=== PATIENT | female | born 1955 | race Hispanic/Latino ===

== ENCOUNTER 2017-01-08 15:02 | Emergency (ER) | payer MEDICAID, MEDICARE ==
[2017-01-08 15:02] VITALS: BMI 28.8
[2017-01-08 15:13] VITALS: BP 127/74; PULSE 100; RESP 20; TEMP 98.2; O2SAT 98
== END 2017-01-08 15:18 | disposition left against medical advice (07) ==
LOC: H.ER 15:02
DX: Z02.89 Encounter for other administrative examinations (principal)

== ENCOUNTER 2017-01-08 17:26 | Emergency (ER) | payer MEDICARE ==
[2017-01-08 17:26] VITALS: BMI 28.8
[2017-01-08 17:43] VITALS: BP 116/76; PULSE 99; RESP 20; TEMP 98; O2SAT 96
[2017-01-08] MEDS ORDERED: Oxycodone/Acetaminophen 5/325 mg Tab ONE (17:52)
[2017-01-08] MEDS ORDERED: Oxycodone/Acetaminophen 5/325 mg Tab PO STA (17:56)
--- NOTE | 2017-01-08 18:40 | ED PDOC ---
HPI: Back Time Seen by Provider: 01/08/17 17:35 Chief Complaint (Nursing): Back Pain Chief Complaint (Provider): Back pain History Per: Patient History/Exam Limitations: no limitations Onset/Duration Of Symptoms: Days (1x) Current Symptoms Are (Timing): Still Present Severity: Moderate Previous Symptoms: Back Pain, Chronic Pain Additional Complaint(s): 61 year old female with a pertinent medical history of chronic back pain, sciatica, arthritis, herniated discs, and severe osteoporosis presents to the ED with complaints of back pain that started today. She has been in the hospital all day because her daughter is having a baby and she is unable to access her back pain medication. She denies having any other complaints. PMD: Shin Baltazar MD Past Medical History Reviewed: Historical Data, Nursing Documentation, Vital Signs Vital Signs: Last Vital Signs Temp 98 F 01/08/17 17:31 Pulse 99 H 01/08/17 17:31 Resp 20 01/08/17 17:31 BP 116/76 01/08/17 17:31 Pulse Ox 96 01/08/17 17:31 - Medical History PMH: Anxiety, Arthritis, Back Problems, CAD, COPD, Depression, HTN, Hypercholesterolemia, Hypothyroidism, Osteoporosis, TIA - Surgical History Surgical History: Carotid Endarterectomy - Family History Family History: States: Unknown Family Hx - Social History Current smoker - smoking cessation education provided: Yes Alcohol: None Drugs: Denies - Immunization History Hx Tetanus Toxoid Vaccination: No Hx Influenza Vaccination: Yes Hx Pneumococcal Vaccination: No - Home Medications Home Medications: Ambulatory Orders Medication Instructions Recorded Acetaminophen/Oxycodone Hydr 1 tab PO Q6H PRN 04/11/15 [Percocet 10/325 mg Tab] Alprazolam [Xanax] 0.5 mg PO BID 04/11/15 Aspirin [Aspirin Chewable] 81 mg PO DAILY 04/11/15 Atorvastatin [Lipitor] 40 mg PO HS 04/11/15 Celecoxib [celeBREX] 100 mg PO BID 04/11/15 Cilostazol [Pletal] 100 mg PO BID 04/11/15 Clopidogrel [Plavix] 75 mg PO DAILY 04/11/15 Cyclobenzaprine HCl [Flexeril] 10 mg PO TID 04/11/15 DULoxetine [Cymbalta] 60 mg PO DAILY 04/11/15 Gabapentin [Neurontin] 800 mg PO BID 04/11/15 Ipratropium/Albuterol Sulfate 1 ray IH QID PRN 04/11/15 [Combivent Inhaler] Levothyroxine Sodium 25 mcg PO DAILY 04/11/15 Lisinopril 40 mg PO DAILY 04/11/15 Naproxen [Naproxen Delayed-Release] 500 mg PO BID 04/11/15 Salmeterol Xinafoate/Fluticaso 2 puff INH BID 04/11/15 [Advair Hfa 45-21] Sertraline [Zoloft] 100 mg PO DAILY 04/11/15 Zolpidem [Ambien] 12.5 mg PO HS 04/11/15 hydrALAZINE [Apresoline] 50 mg PO TID 04/11/15 Tramadol Hydrochloride [Tramadol] 50 mg PO Q8 #10 tab 06/09/15 Cholecalciferol (Vitamin D3) 1,000 unit PO DAILY 01/03/16 [Vitamin D3] Diclofenac Sodium [Voltaren] 50 mg PO TID 01/03/16 [address]ivalproex [Depakote DR (*BID*)] 250 mg PO BID 01/03/16 Escitalopram [Lexapro] 10 mg PO DAILY 01/03/16 Famotidine [Pepcid] 20 mg PO BID 01/03/16 Fluticasone Nasal [Flonase] 1 spr NS TID PRN 01/03/16 Folic Acid 1 mg PO DAILY 01/03/16 Loratadine [Claritin] 10 mg PO DAILY 01/03/16 Montelukast [Singulair] 10 mg PO DAILY 01/03/16 busPIRone [Buspar] 10 mg PO DAILY 01/03/16 Sulfamethoxazole/Trimethoprim 1 tab PO Q12 #14 tab 01/05/16 [Bactrim DS 800 mg-160 mg] - Allergies Allergies/Adverse Reactions: Allergies Allergy/AdvReac Type Severity Reaction Status Date / Time budesonide [From Symbicort] Allergy SHORTNESS Verified 01/02/16 21:15 OF BREATH formoterol fumarate Allergy SHORTNESS Verified 01/02/16 21:15 [From Symbicort] OF BREATH Review of Systems Musculoskeletal: Positive for: Back Pain Physical Exam - Reviewed Nursing Documentation Reviewed: Yes Vital Signs Reviewed: Yes - Physical Exam Appears: Positive for: Well, Non-toxic, No Acute Distress Head Exam: Positive for: ATRAUMATIC, NORMOCEPHALIC Skin: Positive for: Normal Color, Warm, Dry Neck: Positive for: Normal, Painless ROM, Supple Cardiovascular/Chest: Positive for: Regular Rate, Rhythm Respiratory: Positive for: Normal Breath Sounds. Negative for: Respiratory Distress Back: Positive for: Vertebral Tenderness (right paralumbar tenderness) Extremity: Positive for: Normal ROM Neurologic/Psych: Positive for: Alert, Oriented (3x) - ECG O2 Sat by Pulse Oximetry: 96 (RA) Pulse Ox Interpretation: Normal Medical Decision Making Medical Decision Makin:35 Initial impression: 61 year old female with back pain. Initial plan: * percocet 5/325mg tab 1 tab PO * reevaluation Scribe Attestation: Documented by Nuris Molina, acting as a scribe for Blanca Pritchett PA-C. Provider Scribe Attestation: All medical record entries made by the Scribe were at my direction and personally dictated by me. I have reviewed the chart and agree that the record accurately reflects my personal performance of the history, physical exam, medical decision making, and the department course for this patient. I have also personally directed, reviewed, and agree with the discharge instructions and disposition. Disposition - Clinical Impression Clinical Impression: Chronic back pain - Patient ED Disposition Is Patient to be Admitted: No - Disposition Disposition: Routine/Home Disposition Time: 18:13 Condition: FAIR Instructions: Chronic Back Pain (ED)
== END 2017-01-08 18:13 | disposition home or self-care (01) ==
LOC: H.ER 17:26
DX: M54.9 Dorsalgia, unspecified (principal); E78.00 Pure hypercholesterolemia, unspecified; F41.9 Anxiety disorder, unspecified; G89.29 Other chronic pain; I10 Essential (primary) hypertension; I25.10 Atherosclerotic heart disease of native coronary artery without angina pectoris; Z79.82 Long term (current) use of aspirin; Z86.73 Personal history of transient ischemic attack (TIA), and cerebral infarction without residual deficits

== ENCOUNTER 2018-10-28 19:33 | Emergency (ER) | payer MEDICAID, MEDICARE ==
[2018-10-28 19:34] VITALS: BMI 27.4
[2018-10-28 19:43] VITALS: RESP 18; O2SAT 98
[2018-10-28] MEDS ORDERED: Lidocaine 1.5%-Epinephrine 1:200,000 5 ML AMP IJ STA (20:32)
[2018-10-28] MEDS ORDERED: Hydrogen Peroxide 237 ML SOL TP ONE (20:40)
[2018-10-28 20:46] LABS: BASO # 0.1 K/uL (0.0-0.2); BASO % 1.1 % (0.0-2.0); EOS # 0.2 K/uL (0.0-0.7); EOS % 2.1 % (0.0-4.0); HEMOGLOBIN 11.1 g/dL (12.0-16.0); LYMPH # 2.7 K/uL (1.0-4.3); LYMPH % 35.7 % (20.0-40.0); MEAN CELL VOLUME 81.4 fl (81.0-99.0); MEAN CORPUSCULAR HEMOGLOBIN 25.8 pg (27.0-31.0); MEAN CORPUSCULAR HGB CONC 31.7 g/dL (33.0-37.0); MEAN PLATELET VOLUME 9.1 fl (7.2-11.7); MONO # 0.9 K/uL (0.0-0.8); MONO % 11.7 % (0.0-10.0); NEUT # 3.7 K/uL (1.8-7.0); NEUT % 49.4 % (50.0-75.0); NRBC % 0.1 % (0.0-0.0); RBC 4.32 Mil/uL (3.80-5.20); RED CELL DISTRIBUTION WIDTH 23.2 % (11.5-14.5); WHITE BLOOD COUNT 7.5 K/uL (4.8-10.8)
[2018-10-28] MEDS ORDERED: Lidocaine 1% w Epi 1:100,000 Inj ONE (20:46)
[2018-10-28] MEDS ORDERED: Hydrogen Peroxide 3% Soln (480ml) TP ONE (20:47)
[2018-10-28] MEDS ORDERED: Tdap Vaccine 0.5 ml Vial (10-64 yrs) IM ONE ×2 (20:51→21:06)
--- NOTE | 2018-10-28 20:53 | ED PDOC ---
HPI: Trauma/Fall - HPI Time Seen by Provider: 10/28/18 20:08 Chief Complaint (Nursing): Trauma Chief Complaint (Provider): Trauma History Per: Patient History/Exam Limitations: no limitations Onset/Duration Of Symptoms: Mins Injury Occurred (Timing): Just Before Arrival Additional Complaint(s): 62 y/o female brought in by EMS for evaluation of a headache s/p fall just prior to arrival. Patient states she was walking outside when she accidentally tripped over an uneven sidewalk and fell back hitting her head against the railing. Patient denies any loss of consciousness but reports her son told her not to get up off the ground and to wait until EMS came. Patient additionally denies dizziness, lightheadedness, chest pain, neck pain and extremity pain and difficulty walking. Patient currently complaining of a headache. Patient notes of being on blood thinners (Plavix and Pletal) and Aspirin for stents. PMD: Shin Baltazar It Account Manager: Dr. Roberts Tetanus vaccination is not up to date. Past Medical History Reviewed: Historical Data, Nursing Documentation, Vital Signs Vital Signs: Last Vital Signs Temp 98.7 F 10/28/18 19:41 Pulse 66 10/28/18 19:41 Resp 18 10/28/18 19:41 BP 143/58 L 10/28/18 19:41 Pulse Ox 98 10/28/18 19:41 - Medical History PMH: Anxiety, Arthritis, Asthma, Back Problems, CAD, COPD, Depression, HTN, Hypercholesterolemia, Hypothyroidism, Osteoporosis, TIA - Surgical History Surgical History: Carotid Endarterectomy, Coronary Stent - Family History Family History: States: Unknown Family Hx - Immunization History Hx Tetanus Toxoid Vaccination: No Hx Influenza Vaccination: Yes Hx Pneumococcal Vaccination: No - Home Medications Home Medications: Ambulatory Orders Medication Instructions Recorded Cilostazol [Pletal] 100 mg PO ACBD 04/11/17 Clopidogrel [Plavix] 1 tab PO DAILY 04/11/17 DULoxetine [Cymbalta] 60 mg PO DAILY 04/11/17 Divalproex [Depakote ER(ONCE 750 mg PO TID 04/11/17 DAILY)] Famotidine [Pepcid] 20 mg PO BID 04/11/17 Lisinopril [Prinivil] 10 mg PO DAILY 04/11/17 Rosuvastatin Calcium [Crestor] 20 mg PO DAILY 04/11/17 Gabapentin [Neurontin] 400 mg PO TID 04/16/17 Levothyroxine [Synthroid] 25 mcg PO DAILY 04/16/17 Quetiapine Fumarate [Seroquel] 50 mg PO HS 04/16/17 hydrALAZINE [Apresoline] 50 mg PO TID 04/16/17 Acetaminophen/Oxycodone Hydr 1 tab PO Q6H 1 Days tab 04/24/17 [Percocet 10/325 mg Tab] Albuterol HFA [Ventolin HFA 90 1 puff IH QID PRN #1 inhaler 04/24/17 mcg/actuation (8 g)] Albuterol/Ipratropium [Combivent 1 puff IH Q12 #1 inhaler 04/24/17 Respimat] Albuterol/Ipratropium [Duoneb 3 3 ml INH RQ6 neb 04/24/17 mg/0.5 mg (3 ml) UD] Blood Pressure Test Kit-Medium 1 each MC DAILY #1 kit 04/24/17 [Blood Pressure Cuff Monitor] Fluticasone/Salmeterol 250/50 1 puff IH Q12 #1 puff 04/24/17 [Advair Diskus] Mirtazapine [Remeron] 15 mg PO HS #30 tab 04/24/17 Saccharomyces Boulardi [Florastor] 250 mg PO BID #14 cap 04/24/17 levoFLOXacin [Levaquin] 500 mg PO DAILY #7 tab 04/24/17 - Allergies Allergies/Adverse Reactions: Allergies Allergy/AdvReac Type Severity Reaction Status Date / Time budesonide [From Symbicort] Allergy SHORTNESS Verified 10/28/18 19:41 OF BREATH formoterol fumarate Allergy SHORTNESS Verified 10/28/18 19:41 [From Symbicort] OF BREATH Review of Systems ROS Statement: Except As Marked, All Systems Reviewed And Found Negative Cardiovascular: Negative for: Chest Pain Musculoskeletal: Negative for: Neck Pain Neurological: Positive for: Headache. Negative for: Dizziness, Other (loss of consciousness) Physical Exam - Reviewed Nursing Documentation Reviewed: Yes Vital Signs Reviewed: Yes - Physical Exam Comments: GENERAL APPEARANCE: Patient is awake, alert, oriented x 3, in mild obvious discomfort. SKIN: Warm, dry; (-) cyanosis. HEAD: (+) 2 cm laceration with active bleeding and surrounding hematoma noted to the left back of head over parietal area, no foreign body, active bleeding EYES: (-) conjunctival pallor, (-) scleral icterus, (-) nystagmus.(-) periorbital swelling ENMT: Mucous membranes moist. Ears: external canal clear, (-)hemotympanum Nose: (-) septal hematoma (-) tenderness. No oral trauma. Pharynx clear. Airway patent: (-) stridor. Full ROM of mandible without pain. (-) jaw tenderness (-) dental instability NECK: (-) paracervical tenderness, (-) vertebral tenderness, (-) lymphadenop athy. no step off (+)FROM CHEST AND RESPIRATORY: (-) chest wall tenderness. Lungs: (-) rales, (-) rhonchi, (-) wheezes; breath sounds equal bilaterally. HEART AND CARDIOVASCULAR: (-) irregularity; (-) murmur, (-) gallop. ABDOMEN AND GI: Soft; (-) tenderness. BACK: (-) tenderness. EXTREMITIES: (-) deformity, (-) tenderness, (-) edema, (-) ecchymosis, (-) limitation of motion, distal pulses 2+. NEURO AND PSYCH: GCS=15. Mental status as above. Has full memory of episode; truck farmer: Pupils equal & reactive . EOMI. (-) facial asymmetry. Tongue and uvula midline. normal finger to nose, steady gait, Strength 5/5 in all extremities. No gross sensory deficits. DTRs symmetric. - Laboratory Results Result Diagrams: 10/28/18 20:40 10/28/18 20:40 - ECG O2 Sat by Pulse Oximetry: 98 (RA) Pulse Ox Interpretation: Normal Medical Decision Making Medical Decision Making: Time: 2039 Plan: -- Laceration Repair -- CT Head w/o Contrast trauma and on anticoagulants with active bleeding -- CMP -- CBC with Differentials -- PTT -- Prothrombin Time -- Adacel (10-64 yrs) 0.5 ml IM -- Hydrogen Peroxide 237 ml TP -- Lidocaine 1.5% with Epi 10 ml IJ -- Tylenol 650 mg PO -- IV Insertion 21:40 EXAM: CT Head Without IV contrast. CLINICAL HISTORY: Fall laceration TECHNIQUE: Axial computed tomography images of the head/brain without intravenous contrast. COMPARISON: Comparison is made to previous examination dated 04/16/2015. FINDINGS: BRAIN: No acute intraparenchymal hemorrhage. No mass lesion. No CT evidence for acute territorial infarct. No midline shift or extra-axial collections. VENTRICLES: No hydrocephalus. VASCULAR: Atherosclerotic vascular plaquing is seen within the vertebral arteries and carotid siphons bilaterally. ORBITS: The orbits are unremarkable. SINUSES AND MASTOIDS: The paranasal sinuses and mastoid air cells are clear. BONES: No fracture. Radiolucent zones are seen in the inner skull table of the posterior occipit in the midline thought compatible with pacchionian granulation tissue. SOFT TISSUES: A left posterior superior parietal scalp hematoma is identified. IMPRESSION: 1. No acute intracranial abnormality. 2. Posterior superior left parietal scalp hematoma. 3. Atherosclerotic vascular plaquing as described above. 4. No significant interval change. Electronically signed on Oct 28, 2018 9:37:48 PM EDT by: Haider Esparza M.D., M.B.A., Certified By [employer] Trained MRI and CT Specialist Moderate wound irrigation, laceration repair done by me, bleeding controlled, +hematoma, advised ice and f/u with PMD tomorrow, pt's labs wnl, neurologically intact, pain improved, concussion precautions discussed Discussed results, diagnosis, treatment, return precautions and f/u with pt who is understanding, in agreement and stable for dc Scribe Attestation: Documented by Emory Mayberry, acting as a scribe forJohn Cartagena PA-C. Provider Scribe Attestation: All medical record entries made by the Scribe were at my direction and personally dictated by me. I have reviewed the chart and agree that the record accurately reflects my personal performance of the history, physical exam, medical decision making, and the department course for this patient. I have also personally directed, reviewed, and agree with the discharge instructions and disposition. Procedures - Time-Out Type of Procedure: laceration - Laceration/Wound Repair Head Wound Length (cm): 2 Wound's Depth, Shape: superficial Wound Explored: clean Irrigated w/ Saline (ccs): 1,000 Anesthesia: Lidocaine w/ Epi Volume Anesthetic (ccs): 5 Wound Repaired With: Sutures Suture Size/Type: 3:0 (ethilon) Number of Sutures: 3 Wound Complexity: Simple Disposition - Clinical Impression Clinical Impression: Head injury due to trauma, Laceration of head, Fall from slip, trip, or stumble - Patient ED Disposition Is Patient to be Admitted: No Counseled Patient/Family Regarding: Studies Performed, Diagnosis, Need For Followup - Disposition Referrals: Shin Baltazar MD [Family Provider] - Disposition: Routine/Home Disposition Time: 22:29 Condition: IMPROVED Additional Instructions: Return to ED in 7 days for suture removal. Keep wound clean, dry and covered. Apply ice for swelling. Follow up with your doctor in 1-2 days. Take Tylenol as needed for pain. The emergency medical care you received today was directed at your acute symptoms. If you were prescribed any medication, please fill it and take as directed. It may take several days for your symptoms to resolve. Return to the Emergency Department if your symptoms worsen, do not improve, or if you have any other problems. Please contact your doctor in 2 days for re-evaluation and follow up / or call one of the physicians/clinics you have been referred to that are listed on the Patient Visit Information form that is included in your discharge packet. Bring any paperwork you were given at discharge with you along with any medications you are taking to your follow up visit. Our treatment cannot replace ongoing medical care by a primary care provider (PCP) outside of the emergency departm ent. Instructions: Concussion in Adults, Wound Care, Laceration Repair With Stitches (DC) Forms: [employer] (Romansh) Print Language: THAI - POA Present On Arrival: None
[2018-10-28 20:58] LABS: ALB/GLOB RATIO 1.2 (1.0-2.1); ALBUMIN 3.7 g/dL (3.5-5.0); ALT/SGPT 26 U/L (9-52); AST/SGOT 23 U/L (14-36); BLOOD UREA NITROGEN 14 mg/dl (7-17); GFR NON-AFRICAN AMERICAN > 60
[2018-10-28 21:05] LABS: PROTHROMBIN TIME 10.9 Seconds (9.8-13.1)
[2018-10-28 21:06] LABS: PARTIAL THROMBOPLASTIN TIME 33.2 Seconds (25.6-37.1)
[2018-10-28 22:50] VITALS: BP 132/85; PULSE 87; TEMP 98.6
--- NOTE | 2018-10-29 13:43 | CT ---
Date of service: 10/28/2018 PROCEDURE: CT HEAD WITHOUT CONTRAST. HISTORY: fall, laceration COMPARISON: 04/16/2015. TECHNIQUE: Axial computed tomography images were obtained through the head/brain without intravenous contrast. Supplemental Coronal and Sagittal projections created and reviewed. Radiation dose: Total exam DLP = 855.42 mGy-cm. This CT exam was performed using one or more of the following dose reduction techniques: Automated exposure control, adjustment of the mA and/or kV according to patient size, and/or use of iterative reconstruction technique. FINDINGS: HEMORRHAGE: No intracranial hemorrhage. BRAIN: No mass effect or edema. No atrophy or chronic microvascular ischemic changes. VENTRICLES: Unremarkable. No hydrocephalus. CALVARIUM: Unremarkable. PARANASAL SINUSES: Unremarkable as visualized. No significant inflammatory changes. MASTOID AIR CELLS: Unremarkable as visualized. No inflammatory changes. OTHER FINDINGS: Extracranial left posterior parietal scalp contusion. No adjacent calvarial or underlying intracranial abnormalities. IMPRESSION: No acute intracranial abnormalities. No significant findings to account for the clinical presentation. Extracranial scalp contusion without calvarial or intracranial abnormality. Overall no interval change. Concordant results (preliminary interpretation) provided by JOVON COX. Procedure Completed: 20:49 Preliminary Report: Interpreted and electronically signed: 21:37. Final Interpretation: 13:40. October 29, 2018.
== END 2018-10-28 22:40 | disposition home or self-care (01) ==
LOC: H.ER 19:33
DX: S00.03XA Contusion of scalp, initial encounter (principal); S01.81XA Laceration without foreign body of other part of head, initial encounter; W01.0XXA Fall on same level from slipping, tripping and stumbling without subsequent striking against object, initial encounter; Y92.89 Other specified places as the place of occurrence of the external cause; E03.9 Hypothyroidism, unspecified; E78.00 Pure hypercholesterolemia, unspecified; Z79.02 Long term (current) use of antithrombotics/antiplatelets; Z95.5 Presence of coronary angioplasty implant and graft; Z86.73 Personal history of transient ischemic attack (TIA), and cerebral infarction without residual deficits